=== PATIENT | female | born 2000 | race Hispanic/Latino ===

== ENCOUNTER 2019-08-29 16:31 | Emergency (ER) | payer MEDICAID, OTHER | END 2019-08-29 16:56 | disposition home or self-care (01) | LOC: EDH 16:31 | DX: R11.0 Nausea (principal); Z32.00 Encounter for pregnancy test, result unknown | CPT/HCPCS: 99281 ==

== ENCOUNTER 2020-04-10 14:28 | Inpatient (IN) | payer MEDICAID ==
[~2020-04-10] VITALS: Ht 152.4 cm; Wt 120.7 kg
[2020-04-10 15:01] LABS: APPEARANCE,URINE Cloudy (CLEAR); BILIRUBIN,URINE Negative (NEGATIVE); COLOR,URINE Dark Yellow (YELLOW); GLUCOSE, URINE (UA) Negative (NEGATIVE); KETONES,URINE Trace mg/dL (NEGATIVE); LEUKOCYTE ESTERASE ,URINE Trace (NEGATIVE); NITRATE,URINE Negative (NEGATIVE); OCCULT BLOOD,URINE Negative (NEGATIVE); PROTEIN,URINE >=1000 mg/dL (NEGATIVE)
[2020-04-10 15:09] LABS: AMPHET/METH SCREEN,URINE NEGATIVE (NEGATIVE); BARBITURATE SCREEN, URINE NEGATIVE (NEGATIVE); BENZODIAZEPINES SCREEN,URINE NEGATIVE (NEGATIVE); CANNABINOID SCREEN,URINE POSITIVE (NEGATIVE); COCAINE SCREEN,URINE NEGATIVE (NEGATIVE); OPIATE SCREEN,URINE NEGATIVE (NEGATIVE); PHENCYCLIDINE SCREEN,URINE NEGATIVE (NEGATIVE)
[2020-04-10 15:11] LABS: AMORPHOUS SEDIMENT,UR Few /LPF (None Seen); BACTERIA,URINE Few /HPF (None Seen); MUCUS,URINE Few LPF (None Seen); RBC,URINE 0-1 /HPF (0-1); SQUAMOUS EPITHELIAL CELL,UR Few /HPF (0-2)
[2020-04-10] MEDS ORDERED: LACTATED RINGERS 1000ML 1,000 ML IV PRN (15:45)
[2020-04-10 15:47] VITALS: BP 139/90
[2020-04-10 15:56] LABS: BASOPHILS % (AUTO) 0.6 % (0.0-5.0); EOSINOPHILS % (AUTO) 0.2 % (0.0-8.0); HEMATOCRIT 36.1 % (36-48); MEAN CORPUSCULAR HEMOGLOBIN 25.5 pg (27.0-33.0); MEAN CORPUSCULAR VOLUME 77.5 fL (80-100); MONOCYTES % (AUTO) 5.2 % (3.0-13.0); NEUTROPHILS % (AUTO) 77.5 % (40.0-77.0); PLATELET COUNT (AUTO) 201 K/uL (130-400); RED BLOOD CELL COUNT(AUTO) 4.66 MIL/uL (4.00-5.50); RED CELL DISTRIBUTION WIDTH 14.9 % (11.0-15.5); WHITE BLOOD COUNT (AUTO) 9.5 K/uL (4.8-10.8)
[2020-04-10] MEDS ORDERED: AMPICILLIN 2GM+NS 100ML 100 ML IV SCH (16:00)
[2020-04-10 16:19] LABS: CREATININE 0.8 mg/dL (0.5-1.5); POTASSIUM 3.9 mmol/L (3.5-5.1)
[2020-04-10 16:23] LABS: ALBUMIN 1.9 g/dL (3.5-5.0); BILIRUBIN,TOTAL 0.1 mg/dL (0.2-1.0); TOTAL PROTEIN, SERUM 6.1 g/dL (6.0-8.3); URIC ACID 5.9 mg/dL (2.6-7.2)
[2020-04-10] MEDS ORDERED: CALCIUM GLUCONATE 1 GM/10 ML VIAL IV PRN (16:45)
[2020-04-10] MEDS ORDERED: MAGNESIUM 4GM PREMIX 100ML 100 ML IV PRN (16:45)
[2020-04-10] MEDS ORDERED: LACTATED RINGERS 1000ML 1,000 ML IV SCH (16:45)
[2020-04-10] MEDS ORDERED: EPHEDRINE SULFATE 50 MG/ML AMPULE IVP PRN (16:45)
[2020-04-10] MEDS ORDERED: NALOXONE HCL 0.4 MG/1 ML ML IV PRN (16:45)
[2020-04-10] MEDS ORDERED: LACTATED RINGERS 500 ML 500 ML IV PRN (16:45)
[2020-04-10] MEDS ORDERED: MAGNESIUM SULFATE 1,000 ML IV PRN (16:45)
[2020-04-10 16:49] LABS: INR 0.86 (0.85-1.15); PARTIAL THROMBOPLASTIN TIME 27.5 SEC (26.3-35.5); PROTHROMBIN TIME 9.3 SEC (9.6-11.6)
[2020-04-10] MEDS ORDERED: MAGNESIUM SULFATE 1,000 ML IV ONE (16:58)
[2020-04-10] MEDS ORDERED: MAGNESIUM 4GM PREMIX 100ML 100 ML IV ONE (16:58)
[2020-04-10] MEDS: BUTORPHANOL TARTRATE 2 MG/ML IVP PRN (17:44)
[2020-04-10] MEDS: AMPICILLIN 1GM+NS 50ML 50 ML IV SCH (20:13)
[2020-04-11] MEDS: AMPICILLIN 1GM+NS 50ML 50 ML IV SCH ×4 (00:22→12:14)
[2020-04-11] MEDS: BUTORPHANOL TARTRATE 2 MG/ML IVP PRN (00:39)
[2020-04-11] MEDS ORDERED: LABETALOL 20 MG/4 ML DISP.SYRIN IV STA (02:38)
[2020-04-11] MEDS ORDERED: LABETALOL 20 MG/4 ML DISP.SYRIN IV ONE (02:40)
[2020-04-11] MEDS ORDERED: OXYTOCIN-LR 20 UNITS/1000 ML 1,000 ML IV ONE (04:59)
[2020-04-11] MEDS ORDERED: OXYTOCIN 10 USP UNITS/ML 20 UNIT in LACTATED RINGERS 1000ML 1,000 ML IV SCH (05:00)
[2020-04-11] MEDS ORDERED: LIDOCAINE HCL 1% 20 ML VIAL INJ PRN (14:00)
[2020-04-11] MEDS ORDERED: MISOPROSTOL 200 MCG TABLET VG PRN (14:00)
[2020-04-11] MEDS ORDERED: CEFAZOLIN SODIUM 1 GM VIAL IVP PRN (15:15)
[2020-04-11] MEDS ORDERED: DURAMORPH PF1 MG/ML 10ML AMP IV ONE (15:29)
[2020-04-11] MEDS ORDERED: OXYTOCIN 10 USP UNITS/ML ONE ×2 (15:29→20:09)
[2020-04-11] MEDS ORDERED: CEFAZOLIN SODIUM 1 GM VIAL ONE (15:29)
[2020-04-11] MEDS ORDERED: OXYTOCIN-LR 20 UNITS/1000 ML 2,000 ML IV ONE (15:29)
[2020-04-11] MEDS ORDERED: MIDAZOLAM HCL 1 MG/ML 2ML VIAL ONE (16:03)
[2020-04-11] MEDS ORDERED: ONDANSETRON HCL 4 MG/2 ML VIAL ONE (16:04)
[2020-04-11] MEDS ORDERED: SODIUM CHLORIDE 0.9% 10 ML VIAL ONE (16:10)
[2020-04-11] MEDS ORDERED: PHENYLEPHRINE HCL 10 MG/ML 1ML VIAL IV ONE (16:10)
[2020-04-11] MEDS ORDERED: DEXTROSE 5 %-0.45 % NACL 1,000 ML IV PRN (17:30)
[2020-04-11] MEDS ORDERED: MEPERIDINE-PF 75 MG/ML SYG IM PRN (17:30)
[2020-04-11] MEDS ORDERED: PROMETHAZINE HCL 25 MG/ML 1ML AMPULE IM PRN (17:30)
[2020-04-11] MEDS ORDERED: OXYTOCIN-LR 20 UNITS/1000 ML 1,000 ML IV PRN (17:30)
[2020-04-11] MEDS ORDERED: SODIUM CHLORIDE 0.9% 10 ML VIAL IVP PRN (17:30)
[2020-04-11] MEDS ORDERED: NALOXONE HCL 0.4 MG/1 ML ML IVP PRN ×3 (19:45)
[2020-04-11] MEDS ORDERED: ONDANSETRON HCL 4 MG/2 ML VIAL IVP PRN (19:45)
[2020-04-11] MEDS ORDERED: DiphenhydrAMINE HCL 50 MG/ML VIAL IVP PRN (19:45)
[2020-04-11] MEDS ORDERED: MORPHINE SULFATE 2 MG/ML 1ML SYG IVP PRN (19:45)
[2020-04-11] MEDS: ROPIVACAINE 0.2% 100ML VIAL 100 ML EP SCH (19:49)
[2020-04-11] MEDS ORDERED: ROPIVACAINE 0.2% 100ML VIAL 100 ML EP SCH (20:00)
[2020-04-11] MEDS ORDERED: MISOPROSTOL 200 MCG TABLET PR STA (20:06)
[2020-04-11] MEDS ORDERED: PHARMACY COMMUNICATION MISC SCH (20:15)
[2020-04-11] MEDS ORDERED: OXYTOCIN 10 USP UNITS/ML IV SCH (20:15)
[2020-04-12] MEDS: ROPIVACAINE 0.2% 100ML VIAL 100 ML EP SCH (05:11)
[2020-04-12 06:22] LABS: MEAN CORPUSCULAR HEMOGLOBIN 25.2 pg (27.0-33.0); MEAN CORPUSCULAR HGB CONC 32.3 g/dL (32.0-36.0); MEAN CORPUSCULAR VOLUME 78.1 fL (80-100); RED BLOOD CELL COUNT(AUTO) 3.33 MIL/uL (4.00-5.50); RED CELL DISTRIBUTION WIDTH 15.4 % (11.0-15.5); WHITE BLOOD COUNT (AUTO) 13.9 K/uL (4.8-10.8)
[2020-04-12 08:15] LABS: HEPATITIS Bs ANTIGEN SCREEN P Negative (Negative)
--- NOTE | 2020-04-12 10:30 | NUR ---
Referral for Positive UDS/THC SW met with pt. who is smiling and holding baby in her arms. Pt. is calm and cooperative, reports this is her first delivery and has named BB Mian Dewitt. Pt. resides with common law spouse/FOB Erick Dewitt. Pt. is employed with [employer] and works from home; FOB is employed with [employer]. Pt. denies any history of depression or anxiety, denies any history of domestic violence. Pt. verbalized knowledge and understanding of PPD and when to seek assistance. Pt. admits to use of marijuana and reports last use was approximately 3-4months ago. Pt. informed of mandated reporting to CPS and verbalized an understanding. Pt. denies any use of other illicit substances, denies use of etoh or tobacco. Benefits in place include Medicaid, WIC and SNAP 194./monthly. All utilities reportedly connected in the home, carseat in place, pedi/[employer] and couple has own transportation. Pt. reports that FOB and her mother will assist her with care of post discharge, reiterating that she is employed from home. Pt. provided with community resource list/substance use counseling. Pt. voiced no SS needs or concerns. Report made to CPS, Reference #[id number]/Bere-ID#[id number] SW will continue to follow for CPS recommendations once case is assigned. Addendum: 04/12/20 at 1200 by NATE JUNG SS Amended: Links added.
[2020-04-12] MEDS ORDERED: BISACODYL 10 MG SUPP.RECT RC PRN (10:45)
[2020-04-12] MEDS ORDERED: HYDROCODONE/ACETAMINOPHEN 5/325 MG TAB PO PRN (10:45)
[2020-04-12] MEDS ORDERED: DIPH,PERTUSS(ACELL),TET VAC/PF 0.5 ML VIAL IM SCH (10:45)
[2020-04-12] MEDS ORDERED: ACETAMINOPHEN EXTRA STRENGTH 500 MG TABLET PO PRN (10:45)
[2020-04-12] MEDS ORDERED: IBUPROFEN 600 MG TABLET PO PRN (10:45)
[2020-04-12 11:33] VITALS: BP 144/94
--- NOTE | 2020-04-12 12:04 | NUR ---
Call from CPS/Shefali Pearson [phone] to inform this worker that she is on her way to visit pt.
--- NOTE | 2020-04-12 13:41 | NUR ---
SW spoke w/CPS Shefali Pearson who reported that she met with pt. and she will be speaking with pt's mother and sister before she completes Safety Plan. Will f/u tomorrow for d/c plans.
[2020-04-12 16:15] VITALS: BP 139/65
[2020-04-12] MEDS: SIMETHICONE 80 MG TAB.CHEW PO PRN ×2 (16:25→20:54)
[2020-04-12] MEDS: ACETAMINOPHEN-CODEINE 300/30MG TAB PO PRN ×2 (16:30→21:52)
[2020-04-12] MEDS: IBUPROFEN 800 MG TAB PO SCH (17:35)
[2020-04-12 19:52] VITALS: BP 144/73
[2020-04-12] MEDS: DOCUSATE SODIUM 100 MG CAP PO SCH (20:54)
[2020-04-12 23:46] VITALS: BP 148/87
[2020-04-13] MEDS: IBUPROFEN 800 MG TAB PO SCH ×2 (01:22→08:28)
[2020-04-13 04:03] VITALS: BP 142/90
[2020-04-13 07:31] VITALS: BP 119/65
[2020-04-13] MEDS: SIMETHICONE 80 MG TAB.CHEW PO PRN (08:27)
[2020-04-13] MEDS: DOCUSATE SODIUM 100 MG CAP PO SCH (08:28)
--- NOTE | 2020-04-13 10:30 | NUR ---
CPS-Telephone call from Shefali/SWAPNA, stated she met w/pt's mother and Safety Plan completed; pt. and baby may be released home under supervision of pt's mother. Copies of Safety Plan obtained and placed in pt's and BB's charts. Nursing staff, CHAPO Galdamez and CHAPO Conway made aware that pt. and baby are cleared for discharge.
--- NOTE | 2020-04-13 11:15 | NUR ---
pt is discharged. verbal and written discharge instructions given, pls refer to depart. informed of the follow up appointment, prescription given. informed to call the doctor for any concerns. pt voiced understanding to all things discussed. Awaiting baby's discharge. Addendum: 04/13/20 at 1122 by POLI HALLMAN RN Amended: Links added.
--- NOTE | 2020-04-13 12:55 | NUR ---
pt is dismissed with baby in stable condition, brought to private car via wheelchair by Jailyn nash Addendum: 04/13/20 at 1311 by POLI HALLMAN RN Amended: Links added.
== END 2020-04-13 12:55 | disposition home or self-care (01) | DRG 540 ==
LOC: EDH 14:28 → LDH 14:29 → OBSVTOIN 14:29 → WSH 04-12 10:40
PROVIDERS: ADMIT Specialist; ATTEND Specialist
PROC: 10D00Z1 Extraction of Products of Conception, Low, Open Approach (ICD-10-PCS; principal; 2020-04-11 15:40)
PROC: 3E0234Z Introduction of Serum, Toxoid and Vaccine into Muscle, Percutaneous Approach (ICD-10-PCS; 2020-04-12)
DX: O62.2 Other uterine inertia (principal); O11.4 Pre-existing hypertension with pre-eclampsia, complicating childbirth; O99.214 Obesity complicating childbirth; O99.824 Streptococcus B carrier state complicating childbirth; Z3A.39 39 weeks gestation of pregnancy; Z37.0 Single live birth; O77.0 Labor and delivery complicated by meconium in amniotic fluid; E66.01 Morbid (severe) obesity due to excess calories; Z23 Encounter for immunization
CPT/HCPCS: 36415; 59510; 76815; 80053; 80305; 81001; 82044; 83735; 84550; 85025; 85027; 85384; 85610; 85730; 86592; 86850; 86900; 86901; 87340; 90715; A4314; A4344; A4606; G0378; J0290; J0595; J0690; J2250; J2274; J2370; J2405; J2590; J2795; J3475; J7120

== ENCOUNTER 2021-01-08 18:19 | Emergency (ER) | payer MEDICAID ==
[2021-01-08] MEDS ORDERED: HYDROCODONE/ACETAMINOPHEN 10/325 MG TAB ONE (19:24)
== END 2021-01-08 20:14 | disposition home or self-care (01) ==
LOC: EDH 18:19
DX: S83.92XA Sprain of unspecified site of left knee, initial encounter (principal); X50.1XXA Overexertion from prolonged static or awkward postures, initial encounter; Y93.89 Activity, other specified; Y92.89 Other specified places as the place of occurrence of the external cause; Y99.8 Other external cause status
CPT/HCPCS: 29505; 73562